=== PATIENT | female | born 1990 | race Caucasian/White ===

== ENCOUNTER 2019-11-19 13:22 | Emergency (ER) | payer MEDICAID ==
[~2019-11-19] VITALS: Ht 154.9 cm; Wt 67.8 kg
[2019-11-19 13:34] VITALS: Ht 154.9 cm; Wt 67.8 kg
[2019-11-19 14:28] LABS: CALCIUM 9.3 mg/dL (8.5-10.1); CARBON DIOXIDE 21.7 mmol/L (21-32); CHLORIDE SERUM 105 mmol/L (98-107); CREATININE SERUM 0.8 mg/dL (0.6-1.0); GFR1 > 60 mL/min; GLUCOSE SERUM 96 mg/dL (74-106); POTASSIUM SERUM 3.6 mmol/L (3.5-5.1); SODIUM SERUM 140 mmol/L (136-145)
[2019-11-19 14:32] LABS: ALBUMIN 4.3 g/dL (3.4-5.0)
[2019-11-19 14:35] LABS: PLATELET COUNT 307 x10^3mcL (130-400); RED CELL DISTRIBUTION WIDTH 13.8 % (11.5-14.5)
[2019-11-19 14:36] LABS: BASOPHIL % 0.3 % (0-2)
[2019-11-19 14:50] LABS: ALKALINE PHOSPHATASE 61 U/L (46-116); ALT/SGPT 28 U/L (14-59); AST/SGOT 16 U/L (15-37); BILIRUBIN TOTAL 0.4 mg/dL (0.20-1.00); T4(THYROXINE) 11.3 ug/dL (4.7-13.3)
[2019-11-19 15:14] LABS: AMPHETAMINE QUAL UR NONE DETECTED (See below)
[2019-11-19 16:33] VITALS: BP 119/88
== END 2019-11-19 16:33 | disposition home or self-care (01) ==
LOC: ED 13:22
PROVIDERS: Emergency Medicine
DX: N93.8 Other specified abnormal uterine and vaginal bleeding (principal); F41.9 Anxiety disorder, unspecified; F12.20 Cannabis dependence, uncomplicated; F17.210 Nicotine dependence, cigarettes, uncomplicated
CPT/HCPCS: 36415; 85378; 99406

== ENCOUNTER 2020-04-19 15:12 | Emergency (ER) | payer MEDICAID ==
[~2020-04-19] VITALS: Ht 154.9 cm; Wt 68.0 kg
[2020-04-19 15:16] VITALS: Ht 154.9 cm; Wt 68.0 kg
[2020-04-19 16:08] LABS: BASOPHIL % 0.4 % (0-2); PLATELET COUNT 270 x10^3mcL (130-400); RED CELL DISTRIBUTION WIDTH 13.4 % (11.5-14.5)
[2020-04-19 16:51] LABS: CALCIUM 8.4 mg/dL (8.5-10.1); CHLORIDE SERUM 106 mmol/L (98-107); CREATININE SERUM 0.7 mg/dL (0.6-1.0); GFR1 > 60 mL/min; GLUCOSE SERUM 111 mg/dL (74-106); POTASSIUM SERUM 3.6 mmol/L (3.5-5.1); SODIUM SERUM 138 mmol/L (136-145)
[2020-04-19 16:56] LABS: ALBUMIN 3.6 g/dL (3.4-5.0); ALKALINE PHOSPHATASE 70 U/L (46-116); ALT/SGPT 33 U/L (14-59); AST/SGOT 20 U/L (15-37); BILIRUBIN TOTAL 0.27 mg/dL (0.20-1.00); TOTAL PROTEIN, SERUM 6.7 g/dL (6.4-8.2)
[2020-04-19 17:40] VITALS: BP 128/71
== END 2020-04-19 17:40 | disposition home or self-care (01) ==
LOC: ED 15:12
PROVIDERS: Emergency Medicine
DX: N83.202 Unspecified ovarian cyst, left side (principal); N39.0 Urinary tract infection, site not specified
CPT/HCPCS: Q0092

== ENCOUNTER 2020-06-22 19:55 | Emergency (ER) | payer MEDICAID ==
[~2020-06-22] VITALS: Ht 154.9 cm; Wt 70.8 kg
[2020-06-22 20:03] VITALS: Ht 154.9 cm; Wt 70.8 kg
[2020-06-22 21:49] VITALS: BP 116/71
== END 2020-06-22 21:49 | disposition home or self-care (01) ==
LOC: ED 19:55
DX: R07.89 Other chest pain (principal); K22.4 Dyskinesia of esophagus; F17.210 Nicotine dependence, cigarettes, uncomplicated; Z71.6 Tobacco abuse counseling
CPT/HCPCS: 99406; J1885

== ENCOUNTER 2020-09-14 16:28 | Emergency (ER) | payer MEDICAID ==
[~2020-09-14] VITALS: Ht 154.9 cm; Wt 65.8 kg
[2020-09-14 16:36] VITALS: Ht 154.9 cm; Wt 65.8 kg
[2020-09-14 18:39] VITALS: BP 133/71
== END 2020-09-14 18:39 | disposition home or self-care (01) ==
LOC: ED 16:28
DX: U07.1 COVID-19 (principal); K21.9 Gastro-esophageal reflux disease without esophagitis; F41.9 Anxiety disorder, unspecified; G43.909 Migraine, unspecified, not intractable, without status migrainosus
CPT/HCPCS: U0003